=== PATIENT | female | born 1975 | race African-American/Black ===

== ENCOUNTER 2021-07-15 01:56 | Emergency (ER) | payer BC ==
[2021-07-15 02:23] VITALS: TEMP 98.3; BMI 37.8
[2021-07-15] MEDS ORDERED: LIDOCAINE 5% TOPICAL PATCH TP ONE (02:48)
[2021-07-15] MEDS ORDERED: ACETAMINOPHEN 325 MG TABLET (FP) PO ONE (02:48)
[2021-07-15] MEDS ORDERED: KETOROLAC TROMETHAMINE 30 MG/1 ML VIAL IM ONE (02:48)
[2021-07-15] MEDS ORDERED: diazePAM 5 MG TABLET PO ONE (02:49)
[2021-07-15] MEDS ORDERED: KETOROLAC TROMETHAMINE 30 MG/1 ML VIAL ONE (02:54)
[2021-07-15] MEDS ORDERED: LIDOCAINE 5% TOPICAL PATCH ONE (02:54)
[2021-07-15] MEDS ORDERED: ACETAMINOPHEN 325 MG TABLET (FP) ONE (02:54)
[2021-07-15] MEDS ORDERED: diazePAM 5 MG TABLET ONE (02:54)
[2021-07-15] MEDS ORDERED: KETOROLAC TROMETHAMINE 30 MG/1 ML VIAL IVPUSH ONE (02:56)
[2021-07-15 04:10] LABS: EOS % 6.1 % (0-4.5); HEMATOCRIT 36.3 % (32.4-45.2); HEMOGLOBIN 11.9 GM/dL (10.7-15.3); MCH 26.7 pg (25.7-33.7); MCHC 32.9 g/dl (32.0-36.0); MEAN CELL VOLUME 81.2 fl (80-96); MEAN PLT VOLUME 9.6 fl (7.5-11.1); NEUT % 57.9 % (42.8-82.8); PLATELET COUNT 264 10^3/uL (134-434); RBC 4.47 M/mm3 (3.60-5.2); RDW 13.4 % (11.6-15.6); WHITE BLOOD COUNT 6.8 K/mm3 (4.0-10.0)
[2021-07-15 04:29] LABS: CALCIUM 8.4 mg/dL (8.5-10.1)
[2021-07-15 04:30] LABS: ALBUMIN 3.6 g/dl (3.4-5.0); BLOOD UREA NITROGEN 20.7 mg/dL (7-18); MAGNESIUM 2.2 mg/dL (1.8-2.4)
[2021-07-15 04:33] LABS: CREATININE 0.8 mg/dL (0.55-1.3)
[2021-07-15 04:35] LABS: BILIRUBIN,TOTAL 0.2 mg/dL (0.2-1); TOT PROT 7.2 g/dl (6.4-8.2)
[2021-07-15 07:44] VITALS: BP 140/99
[2021-07-15 07:45] VITALS: PULSE 69
[2021-07-15] MEDS ORDERED: LIDOCAINE PATCH REMOVAL MC SCH (22:00)
== END 2021-07-15 10:44 | disposition home or self-care (01) ==
LOC: JER 01:56
PROC: 3E0333Z Introduction of Anti-inflammatory into Peripheral Vein, Percutaneous Approach (ICD-10-PCS; principal; 2021-07-15)
DX: M54.2 Cervicalgia (principal)
CPT/HCPCS: 36415; 70491-TC; 80053; 83735; 84703; 85025; 93005; 93010; 99285-25; Q9967

== ENCOUNTER 2021-11-17 19:50 | Emergency (ER) | payer BC ==
[2021-11-17 19:57] VITALS: BP 154/94; PULSE 59; RESP 18; TEMP 98.4; BMI 39.4
[2021-11-17] MEDS ORDERED: IBUPROFEN 600 MG TABLET (FP) PO ONE ×2 (21:45→21:47)
[2021-11-17] MEDS ORDERED: CEPHALEXIN MONOHYDRATE 500 MG CAPSULE (UD) PO ONE (21:45)
[2021-11-17] MEDS ORDERED: CEPHALEXIN MONOHYDRATE 500 MG CAPSULE (UD) ONE (21:46)
== END 2021-11-17 21:59 | disposition home or self-care (01) ==
LOC: JER 19:50 → JERFT 19:50
DX: L03.113 Cellulitis of right upper limb (principal); Z91.030 Bee allergy status
CPT/HCPCS: 99283-25

== ENCOUNTER 2022-09-29 21:10 | Emergency (ER) | payer BC, OTHER ==
[2022-09-29 21:32] VITALS: BP 148/90; PULSE 61; RESP 20; TEMP 98.3; BMI 39.4
[2022-09-30] MEDS ORDERED: KETOROLAC TROMETHAMINE 30 MG/1 ML VIAL IM ONE (00:51)
[2022-09-30] MEDS ORDERED: diazePAM 5 MG TABLET PO ONE (00:51)
[2022-09-30] MEDS ORDERED: KETOROLAC TROMETHAMINE 30 MG/1 ML VIAL ONE (00:51)
[2022-09-30] MEDS ORDERED: diazePAM 5 MG TABLET ONE (00:51)
== END 2022-09-30 00:59 | disposition home or self-care (01) ==
LOC: JER 21:10 → JERFT 21:10 → JER 09-30 00:59
PROC: 3E0233Z Introduction of Anti-inflammatory into Muscle, Percutaneous Approach (ICD-10-PCS; principal; 2022-09-30)
DX: M54.9 Dorsalgia, unspecified (principal); M54.2 Cervicalgia; V49.40XA Driver injured in collision with unspecified motor vehicles in traffic accident, initial encounter; Y93.I9 Activity, other involving external motion
CPT/HCPCS: 99284-25